=== PATIENT | male | born 1980 | race Caucasian/White ===

== ENCOUNTER 2016-10-08 10:12 | Emergency (ER) | payer SELFPAY ==
[~2016-10-08] VITALS: Ht 177.8 cm; Wt 90.0 kg
[~2016-10-08 10:12] MED LIST: MELA1TAB15 PO
[2016-10-08 10:14] VITALS: BP 146/92
== END 2016-10-08 12:54 | disposition home or self-care (01) ==
LOC: ED 10:28
DX: S62.327A Displaced fracture of shaft of fifth metacarpal bone, left hand, initial encounter for closed fracture (principal); Y04.0XXA Assault by unarmed brawl or fight, initial encounter; Y93.89 Activity, other specified; Y92.89 Other specified places as the place of occurrence of the external cause; Y99.8 Other external cause status
CPT/HCPCS: 29130